=== PATIENT | male | born 1975 | race Caucasian/White ===

== ENCOUNTER 2022-08-16 02:36 | Emergency (ER) | payer MEDICAID ==
[2022-08-16] MEDS ORDERED: Sodium Chloride 0.9% 1,000 ML IV ONE (03:13)
[2022-08-16] MEDS ORDERED: Thiamine 200 MG/2 ML MDV IVPUSH ONE (03:13)
[2022-08-16] MEDS ORDERED: Pantoprazole 40 MG Vial IVPUSH ONE (03:16)
[2022-08-16] MEDS: Sodium Chloride 0.9% 10 ML Syringe FLUSH PRN ×2 (03:30→05:55)
[2022-08-16 03:32] LABS: ESTIMATED GFR 84 mL/min (>60)
[2022-08-16] MEDS ORDERED: Potassium Chloride 20 MEQ Tab.ER PO ONE (03:44)
[2022-08-16] MEDS ORDERED: Magnesium Sulfate/Water 2 GM in Premix Bag 1 BAG IV ONE (03:58)
[2022-08-16] MEDS ORDERED: Ondansetron 4 MG/2 ML SDV IVPUSH ONE (05:49)
[2022-08-16] MEDS ORDERED: Ketorolac 30 MG/ML SDV IVPUSH ONE (05:49)
== END 2022-08-16 06:34 | disposition other institution (70) ==
LOC: FB.ED 02:36
DX: F10.930 Alcohol use, unspecified with withdrawal, uncomplicated (principal); Z88.0 Allergy status to penicillin; Z88.8 Allergy status to other drugs, medicaments and biological substances; Z79.899 Other long term (current) drug therapy
CPT/HCPCS: 36415; 80053; 80307; 81001; 83690; 83735; 85025; 96361; 96365; 96366; 96375; 99285; A9270; C9113; J1885; J2405; J3360; J3411; J3475; J3490; J7030